=== PATIENT | female | born 1980 | race Caucasian/White ===

== ENCOUNTER → 2016-07-10 | Outpatient (CLI) | payer OTHER ==
[~2016-07-10] MED LIST: PRENTAB26 PO
[2016-07-10 14:30] LABS: MANUAL MICROSCOPIC REQUIRED? NO; REVIEW REQ? NO; URINE APPEARANCE CLEAR (CLEAR); URINE BILIRUBIN NEG (NEG); URINE COLOR YELLOW; URINE NITRITE NEG (NEG); URINE PH 5.5 (4.5-7.5); URINE SPECIFIC GRAVITY 1.019 (1.000-1.030); UROBILINOGEN NEG (NEG)
== END | disposition home or self-care (01) ==
LOC: C.LABSPEC 13:27
PROVIDERS: ATTEND Obstetrics & Gynecology
DX: Z34.01 Encounter for supervision of normal first pregnancy, first trimester (principal)

== ENCOUNTER → 2016-07-15 | Outpatient (CLI) | payer OTHER ==
[2016-07-15 10:59] LABS: BASO % 0.3 %; BASO ABS # 0.02 K/uL (0-0.2); COMPLETE YES; EOS % 0.3 %; HEMATOCRIT 38.3 % (37-47); LYMPH % 22.3 %; MEAN CELL VOLUME 90.8 fL (80-100); MEAN CORPUSCULAR HEMOGLOBIN 31.8 pg (25-34); MEAN PLATELET VOLUME 10.5 fL (7.4-10.4); MONO % 3.6 %; NEUT % 73.5 %; PLATELET COUNT 173 K/uL (130-400); RED BLOOD COUNT 4.22 M/uL (4.2-5.4); WHITE BLOOD COUNT 7.17 K/uL (4.8-10.8)
== END | disposition home or self-care (01) ==
LOC: C.LAB1850 09:07
PROVIDERS: ATTEND Obstetrics & Gynecology
DX: Z34.01 Encounter for supervision of normal first pregnancy, first trimester (principal)

== ENCOUNTER → 2016-07-15 | Outpatient (CLI) | payer OTHER ==
[2016-07-17 01:54] LABS: CHLAMYDIA TRACH RNA*** NOT DETECTED (NOT DETECTED); GC (NEIS GONORRHOEAE)RNA** NOT DETECTED (NOT DETECTED)
== END | disposition home or self-care (01) ==
LOC: C.LABSPEC 10:55
PROVIDERS: ATTEND Obstetrics & Gynecology
DX: Z34.01 Encounter for supervision of normal first pregnancy, first trimester (principal)

== ENCOUNTER → 2016-09-09 | Outpatient (CLI) | payer OTHER ==
[2016-09-09 12:02] LABS: GTGD 50 Grams
== END | disposition home or self-care (01) ==
LOC: C.LAB1850 08:47
PROVIDERS: ATTEND Obstetrics & Gynecology
DX: Z34.02 Encounter for supervision of normal first pregnancy, second trimester (principal)

== ENCOUNTER → 2016-12-02 | Outpatient (CLI) | payer OTHER ==
[2016-12-02 10:11] LABS: HEMATOCRIT 35.2 % (37-47)
[2016-12-02 10:37] LABS: GTGD 50 Grams
[2016-12-02 12:06] LABS: URINE APPEARANCE CLOUDY (CLEAR); URINE BILIRUBIN NEG (NEG); URINE COLOR YELLOW; URINE EPITHELIAL CELL AUTO >30 /lpf (0-5); URINE NITRITE NEG (NEG); URINE PH 6.5 (4.5-7.5); URINE SPECIFIC GRAVITY 1.016 (1.000-1.030); UROBILINOGEN NEG (NEG)
[2016-12-02 12:08] LABS: MANUAL MICROSCOPIC REQUIRED? NO; REVIEW REQ? NO
== END | disposition home or self-care (01) ==
LOC: C.LAB1850 08:49
PROVIDERS: ATTEND Obstetrics & Gynecology
DX: O09.513 Supervision of elderly primigravida, third trimester (principal); Z3A.00 Weeks of gestation of pregnancy not specified

== ENCOUNTER → 2017-01-30 | Outpatient (CLI) | payer OTHER | END | disposition home or self-care (01) | LOC: C.LABSPEC 10:53 | PROVIDERS: ATTEND Obstetrics & Gynecology | DX: O09.512 Supervision of elderly primigravida, second trimester (principal); Z3A.00 Weeks of gestation of pregnancy not specified ==

== ENCOUNTER 2017-02-23 10:20 | Outpatient (CLI) | payer OTHER ==
[~2017-02-23] VITALS: Ht 152.4 cm; Wt 70.8 kg
[2017-02-23] MEDS ORDERED: PRENTAB26 PO (10:50)
[2017-02-23 10:51] VITALS: Ht 152.4 cm; Wt 70.8 kg
--- NOTE | 2017-02-23 14:22 | DIAGNOSTIC IMAGING REPORT ---
BIO PROF W/O NST-SINGLE CLINICAL HISTORY: 37 years-old Female presenting with post-dates. TECHNIQUE: Real-time grayscale and M-mode Doppler ultrasound imaging of the pelvis was performed using a transabdominal probe. COMPARISON: None. FINDINGS: Uterus: Single live intrauterine third trimester . Femur length 7.5 cm corresponding to an estimated gestational age 38 weeks 2 days. Normal flexion and movement observed. heart rate 145-156 beats per minute. A three-vessel cord is observed. No spontaneous breathing observed. Cephalic presentation. Normal amniotic fluid volume. Amniotic fluid index 7.8. Posterior fundal placental implantation. Placental calcifications noted. Right adnexa: Not evaluated. Left adnexa: Not evaluated. Other: No free fluid. IMPRESSION: 1. biophysical profile score 6/8 by ultrasound with absent breathing. 2. Placental calcification suggest aging placenta. Electronically signed by: Jontahan Willams M.D. 02/23/2017 2:20 PM Dictated Date/Time: 02/23/2017 2:16 PM
== END 2017-02-23 14:57 | disposition home or self-care (01) ==
LOC: C.OPB 10:20 → C.LD 10:20 → C.OPB 14:57
PROVIDERS: ATTEND Obstetrics & Gynecology
DX: O26.893 Other specified pregnancy related conditions, third trimester (principal); Z3A.40 40 weeks gestation of pregnancy

== ENCOUNTER 2017-02-24 10:18 | Inpatient (IN) | payer OTHER ==
[~2017-02-24] VITALS: Ht 152.4 cm; Wt 71.2 kg
[2017-02-24] MEDS ORDERED: LACTATED RINGER'S 1000ML 1,000 ML IV PRN (10:49)
[2017-02-24] MEDS ORDERED: LACTATED RINGER'S 1000ML 500 ML IV PRN ×2 (10:49→17:51)
[2017-02-24] MEDS ORDERED: OXYTOCIN 30 UNITS/500ML NSS IV PRN (11:00)
[2017-02-24] MEDS: LACTATED RINGER'S 1000ML 1,000 ML IV SCH ×4 (11:03→23:02)
[2017-02-24 11:29] LABS: HEMATOCRIT 38.3 % (37-47); MEAN CELL VOLUME 92.3 fL (80-100); MEAN CORPUSCULAR HEMOGLOBIN 32.3 pg (25-34); MEAN PLATELET VOLUME 10.9 fL (7.4-10.4); PLATELET COUNT 127 K/uL (130-400); RED BLOOD COUNT 4.15 M/uL (4.2-5.4); WHITE BLOOD COUNT 10.11 K/uL (4.8-10.8)
[2017-02-24 11:53] VITALS: Ht 152.4 cm; Wt 71.2 kg
[2017-02-24] MEDS ORDERED: BUPIVACAINE 0.25% 30 ML VIAL ONE ×3 (16:44→21:33)
[2017-02-24] MEDS ORDERED: EpHEDrine SULFATE INJ 50 MG/ML AMP ONE (16:44)
[2017-02-24] MEDS ORDERED: FENTANYL CITRATE INJ 50 MCG/1 ML 2 ML VIAL ONE ×2 (16:45→20:54)
[2017-02-24] MEDS ORDERED: FENTANYL 2MCG/ML ROPIV 1.25MG/ML 100ML BAG EPI ONE (16:45)
[2017-02-24] MEDS ORDERED: NALOXONE HCL INJ 1 MG in SODIUM CHLORIDE 0.9% 1000ML 1,000 ML IV PRN (17:51)
[2017-02-24] MEDS ORDERED: EpHEDrine SULFATE INJ 50 MG/ML AMP IV PRN (18:00)
[2017-02-24] MEDS ORDERED: ONDANSETRON INJ 2 MG/ML 2 ML VIAL IV PRN (18:00)
[2017-02-24] MEDS ORDERED: NALBUPHINE HCL INJ 10 MG/ML AMP IV PRN (18:00)
[2017-02-24] MEDS ORDERED: NALOXONE HCL INJ 0.4 MG/1 ML VIAL/CARP IV PRN (18:00)
[2017-02-24] MEDS ORDERED: DiphenhydrAMINE HCL 50 MG/ML VIAL IV PRN (18:00)
[2017-02-24] MEDS: FENTANYL 2MCG/ML ROPIV 1.25MG/ML 100ML BAG EPI PRN ×2 (19:10→22:03)
[2017-02-25] MEDS: FENTANYL 2MCG/ML ROPIV 1.25MG/ML 100ML BAG EPI PRN (01:01)
[2017-02-25] MEDS ORDERED: SUPERCREAM 0.870 % 15GM JAR EXT PRN (04:00)
[2017-02-25] MEDS ORDERED: OXYTOCIN 30 UNITS/500ML NSS IV PRN (04:00)
[2017-02-25] MEDS ORDERED: ACETAMINOPHEN 325 MG TAB PO PRN (04:00)
[2017-02-25] MEDS ORDERED: OXYCODONE/ACETAMINOPHEN 5-325 TAB PO PRN (04:00)
[2017-02-25] MEDS ORDERED: DIPHTHERIA/TETANUS/PERTUSSIS 0.5 ML SYR/VIAL IM. ONE (04:00)
[2017-02-25] MEDS ORDERED: HYDROCORTISONE ACETATE 25 MG SUPP PR PRN (04:00)
[2017-02-25] MEDS ORDERED: BENZOCAINE 20% AER SPR 82.5 GM CAN EXT PRN (04:00)
[2017-02-25] MEDS ORDERED: LANOLIN OINT EXT PRN ×2 (04:00)
[2017-02-25 06:35] VITALS: BP 116/78; PULSE 97; TEMP 37.2
--- NOTE | 2017-02-25 07:27 | DELIVERY SUMMARY ---
DATE OF OPERATION: 02/25/2017 PREOPERATIVE DIAGNOSIS: Intrauterine at 40 and 4/7 weeks. POSTOPERATIVE DIAGNOSIS: Same. PROCEDURE: 1. Wong bulb for cervical ripening. 2. Pitocin augmentation. 3. Normal spontaneous vaginal delivery. 4. Vaginal laceration with repair. SURGEON: Dr. Wong. ANESTHESIA: Epidural. ESTIMATED BLOOD LOSS: 350 cc. DETAILS OF PROCEDURE: The patient presented to labor and delivery after having had two days of a fairly flat non-stress test. The patient had had a 6/8 BPP the day before with 2 taken off for breathing and develop a reactive NST while under observation. The patient presented to the office today where she had again a flat NST. When she presented to labor and delivery it was reactive, but given her gestational age we decided to proceed with induction. The patient underwent Wong bulb placement for cervical ripening and concomitant Pitocin augmentation. She progressed and eventually went to the bathroom and the Wong bulb fell out. She got her epidural anesthetic. She was checked and found to be 6 cm. It was difficult to tell if membranes were palpable. She progressed and very slowly after that with Pitocin augmentation to complete complete +2 station. She pushed effectively for approximately and hour and a half. Amniotomy was performed at +2 station for a very thin membrane and essentially no fluid. She then delivered a viable male infant in TRACIE presentation. A loose nuchal cord x1 was reduced. The nose and mouth were bulb suctioned on the perineum and the rest of the was then delivered without difficulty. The infant was placed on the maternal abdomen for drying and attention and the cord was clamped and cut. Cord blood and segment were obtained. Placenta was delivered spontaneously intact with a 3-vessel cord. Cervix, sulci, rectum and perineum were examined and found to be intact. A small vaginal laceration was repaired with 3-0 Vicryl. Hemostasis obtained with dilute Pitocin and fundal massage. Apgars were 8 and 9. Weight pending. Mother and baby doing well at the end of the delivery. I attest to the content of the Intraoperative Record and any orders documented therein. Any exception s are noted below.
[2017-02-25 08:00] VITALS: BP 109/75; PULSE 98; TEMP 36.9
[2017-02-25] MEDS: DOCUSATE SODIUM 100 MG CAP PO SCH ×2 (08:08→19:24)
[2017-02-25] MEDS: PRENATAL VITAMIN TAB PO SCH (08:08)
--- NOTE | 2017-02-25 08:52 | Anesthesia Procedure Note ---
Anesthesia Epidural Removal Nt Date & Time Feb 25, 2017 at 08:52 Vital Signs Pain Intensity: 0.0 Vital Signs Past 12 Hours Date Time Temp Pulse Resp B/P (MAP) Pulse Ox O2 Delivery O2 Flow Rate FiO2 02/25/17 08:00 36.9 98 18 109/75 (86) Room Air 02/25/17 06:35 37.2 97 18 116/78 (91) Room Air Notes Mental Status: alert / awake / arousable, participated in evaluation Nausea / Vomiting: adequately controlled Pain: adequately controlled Airway Patency, RR, SpO2: stable & adequate BP & HR: stable & adequate Hydration State: stable & adequate Neuraxial Anesthesia: was administered, sensory block is resolved Anesthetic Complications: no major complications apparent, pt satisfied with anesthetic care Epidural: removed without complications, with tip intact
[2017-02-25 11:26] VITALS: BP 118/84; PULSE 99; TEMP 36.6
[2017-02-25] MEDS: IBUPROFEN 600 MG TAB PO PRN ×2 (13:07→19:25)
[2017-02-25 15:30] VITALS: BP 127/83; PULSE 90; TEMP 36.5; O2SAT 97
[2017-02-25 19:25] VITALS: BP_SYST 127; BP_SYST 143; BP_DIAS 86; BP_DIAS 94; PULSE 99; TEMP 36.3; O2SAT 99
[2017-02-26 00:01] VITALS: BP 112/74; PULSE 78; TEMP 36.4; O2SAT 98
[2017-02-26 03:45] VITALS: BP 98/67; PULSE 90; TEMP 36.5; O2SAT 97
[2017-02-26] MEDS: IBUPROFEN 600 MG TAB PO PRN (06:24)
--- NOTE | 2017-02-26 06:33 | Progress Note ---
Subjective Feb 26, 2017. Subjective conversation w/ patient, physical exam, chart review, lab review Ambulation: limited ambulation (to bathroom thus far) Voiding: no voiding problems Passing Gas: Yes Diet Tolerance: Regular Diet Lochia: Small Feeding Type: Breast Feeding (and bottle) Pain: Denies pain or cramping Comment: Found pt resting comfortably, smiling, denies any pain or acute concerns. Review of Systems Constitutional: No fever, No chills Respiratory: No cough, No shortness of breath Cardiac: No chest pain, No edema Abdomen: No nausea, No vomiting, No diarrhea Female : No dysuria Objective Vital Signs Date Time Temp Pulse Resp B/P (MAP) Pulse Ox O2 Delivery O2 Flow Rate FiO2 02/26/17 03:45 36.5 90 18 98/67 (77) 97 Room Air 02/26/17 00:01 36.4 78 18 112/74 (87) 98 Room Air 02/26/17 00:01 Room Air 02/25/17 19:25 36.3 99 18 143/94 (110) 99 Room Air 127/86 (100) 02/25/17 15:30 36.5 90 18 127/83 (98) 97 Room Air 02/25/17 15:30 Room Air 02/25/17 11:26 36.6 99 18 118/84 (95) Room Air 02/25/17 08:10 Room Air 02/25/17 08:00 36.9 98 18 109/75 (86) Room Air 02/25/17 06:35 37.2 97 18 116/78 (91) Room Air Physical Exam General Appearance: WELL-APPEARING, WD/WN, NO APPARENT DISTRESS Respiratory/Chest: lungs clear, normal breath sounds, no respiratory distress Cardiovascular: regular rate, rhythm, no edema, no murmur Abdomen: normal bowel sounds, non tender, soft Fundus: Firm, Non-Tender, Relation to Umbilicus (at umbilicus) Extremities: non-tender, no pedal edema, no calf tenderness Laboratory Results Last 24 Hours Test 02/26/17 06:24 Assessment and Plan Post- Day#: 1 Continue Routine Care: 37F s/p vaginal delivery, now PPD #1. - Blood type B positive. GBS negative. Rubella immune. - Vital signs reviewed and stable. - Pain controlled with motrin. - No leg swelling or tenderness on calf palpation. Encourage ambulation. - Encourage breast feeding. - Hemoglobin pre-delivery 13.4, post-delivery pending this am. Bleeding has improved. Continue to monitor clinically. - Continue routine post-vaginal delivery care. - Pt agreed with above plan, all current questions answered. Vic Burrows MD, PGY1 Mechanic Marine Engine Physician Supervision Note: I interviewed and examined the patient. Discussed with Dr. Burrows and agree with findings and plan as documented in the note. Any exceptions or clarifications are listed here: Patient desires d/c. Instructions given, f/u in 6 weeks for PP check Documented By: Jm Hsu Resident Tracking Resident Involvement: Resident Care Provided Care Provided: OB Delivery (OB rounds)
--- NOTE | 2017-02-26 06:55 | Discharge Instructions ---
Discharge Instructions Date of Service Feb 26, 2017. Admission Reason for Admission: Induction Discharge Discharge Diagnosis / Problem: Recovery from vaginal delivery Discharge Goals Goal(s): Routine recovery after delivery Medications Continue Dispensed Medications: supercream, dermaplast, tucks, lansinoh Activity Recommendations Activity Limitations: per Instructions/Follow-up section . Instructions / Follow-Up Instructions / Follow-Up ACTIVITY RECOMMENDATIONS: * Gradual return to full activity over the next 2-3 weeks. * No lifting - nothing heavier than baby over the next 2-3 weeks. * Do not engage in vigorous exercise, sexual activity or sports until cleared by your physician. * Do not drive or operate any motorized equipment until cleared by your physician. * You may shower/bathe daily. MEDICATIONS: For discomfort or pain, you may use Acetaminophen (Tylenol), Ibuprofen (Advil), or Naproxen (Aleve) following the package directions. For constipation you may use Colace following the package directions. BREAST CARE: If you are not breast feeding: * Wear a supportive bra 24 hours a day for one to two weeks. * Avoid stimulating your breasts and nipples as much as possible during the first few weeks after delivery. * When taking a shower, have the warm water hit your back, not breasts. * When your breasts feel full, apply ice packs. Usually three to four times a day helps ease the discomfort. * Take a mild pain medication (Tylenol / Motrin) when you are uncomfortable. If breast feeding: * Use breast milk to lubricate nipples. Lansinoh cream may be used for sore nipples. You do not need to remove cream prior to breast feeding. If using a different brand of cream, check the label for directions regarding removal of cream prior to nursing. * Wear a supportive bra. * If having problems with breasts or breast feeding, call a call center consultant or your health care provider. EPISIOTOMY CARE: After delivery, if you have an episiotomy (stitches), the following steps will ease discomfort and aid healing. * For the first 24 hours after delivery, place ice packs next to your episiotomy to help reduce swelling. * After the first 24 hour-period, sitz baths, either portable or in the tub, are suggested. A shower with a shower arm sprayed over the episiotomy may be comforting. * Briseyda care should be done after each voiding and bowel movement. Squirt warm water from a plastic bottle over the perineum (region of the body between the anus and urinary opening) and pat dry. * Use Dermoplast to ease discomfort. Shake container. Bulan directly over the episiotomy. Place a Tucks on a clean sanitary pad next to your episiotomy. SPECIAL CARE INSTRUCTIONS: When you are discharged from the hospital, it is important for you to follow the instructions listed below: * During the first week at home, you should be able to care for yourself and your baby. In addition, the usual light household activities are encouraged. * Limit your activities to the way you feel. Do not try to clean the house or move furniture. Be sensible. * If you actively engage in sports and have done so up until the time of your delivery, you may resume these activities as soon as you feel able. This may take up to one month or even longer. Use good judgment. * Continue to take your vitamins for at least six weeks after the of your baby. * Your diet need not be limited unless you were on a special diet before your delivery. Breast-feeding mothers need around 2500 calories per day and at least 64-80 ounces of fluid per day (8 to 10 glasses). * You should eat foods from the four major food groups. Crash diets or fad diets are to be avoided. Eating lean meats, fresh fruits and vegetables, low-fat dairy products, high fiber foods and a regular exercise program, will help you get back to your pre- weight without putting your health at risk. * Constipation is sometimes a problem after delivery. Take a mild laxative as needed. If breast feeding, Milk of Magnesia is acceptable to use. You may use a suppository or Fleets enema if no episiotomy. * A daily shower or tub bath is suggested. Be sure to thoroughly and gently dry the perineum. * A bloody vaginal discharge will usually continue until around four weeks post . A small amount of bleeding may continue for as long as six weeks. Vaginal discharge changes from the bright red bleeding after delivery to pink then brownish and finally yellowish-pink before becoming white and disappearing. * Bleeding may increase with activity. Your first period may come in 4-8 weeks. If you are breast feeding, your period may be delayed even longer. * [place] (sex) can begin whenever both you and your partner feel comfortable and do not have any form of genital infection. It is recommended that you wait at least six weeks for internal and external healing to occur. If you have questions, please talk to your health care practitioner. A condom should be used to prevent infection and . * Foreplay, gentle intercourse and lubrication is very important the first several times to prevent pain. A water-based lubricant such as K-Y jelly or Astroglide may be used. * If you have RH negative blood and your baby is RH positive, you will receive RHOGAM by injection prior to discharge. The nurse will give you a card to keep with you that has the date and place that you received RHOGAM after delivery. * During your care, you had a Rubella screen done to check for the presence of rubella antibodies in your blood. If your test was negative, you will receive a Rubella vaccine prior to discharge. This vaccine may cause a fever, soreness at the injection site and flu-like symptoms. If these symptoms persist, notify your health care practitioner. is not advised for one month after a Rubella vaccine. * Verbalizes understanding of car seat law as reviewed with patient nursing. * Car Seat hand-out given and reviewed with patient by nursing. * Shaken baby information reviewed with patient by nursing. Call you doctor if: * Heavy bleeding (saturating several pads an hour) or passing clots the size of your fist. * A fever >101 degrees F (38.3 degrees C) on two occasions four hours apart and /or chills. * Unusual pain in the pelvic or vaginal areas. * "Baby Blues" lasting longer than two weeks. If you have any questions or concerns, call your health care practitioner at . FOLLOW UP VISIT: * Please call the office at to schedule a 6 week examination. It is important you keep this appointment. It is important for you to make arrangements for either yearly or twice yearly check-ups thereafter. Current Hospital Diet Patient's current hospital diet: Regular OB Diet Discharge Diet Recommended Diet: Regular OB Diet Pending Studies Studies pending at discharge: no Medical Emergencies . Who to Call and When: Medical Emergencies: If at any time you feel your situation is an emergency, please call 911 immediately. . Non-Emergent Contact Non-Emergency issues call your: Gas Line Servicer . . "Provider Documentation" section prepared by Vic Burrows. . VTE Core Measure Inpt VTE Proph given/why not?: Treatment not indicated
[2017-02-26 07:43] VITALS: BP 120/98; PULSE 86; TEMP 36.3; O2SAT 100
[2017-02-26] MEDS: DOCUSATE SODIUM 100 MG CAP PO SCH (08:45)
[2017-02-26] MEDS: PRENATAL VITAMIN TAB PO SCH (08:45)
[2017-02-26 09:28] VITALS: BP_DIAS 98; PULSE 86; TEMP 36.3
[2017-02-26 15:25] VITALS: BP 148/79; PULSE 100; TEMP 36.5; O2SAT 99
[2017-02-26 16:30] VITALS: BP_DIAS 79; PULSE 100; TEMP 36.5
== END 2017-02-26 16:30 | disposition home or self-care (01) | DRG 775 ==
LOC: C.LD 10:18 → C.OPB 10:18 → C.LD 10:51 → C.OBG 02-25 06:02
PROVIDERS: ADMIT Obstetrics & Gynecology; ATTEND Obstetrics & Gynecology
PROC: 3E033VJ Introduction of Other Hormone into Peripheral Vein, Percutaneous Approach (ICD-10-PCS; principal; 2017-02-24)
PROC: 10H07YZ Insertion of Other Device into Products of Conception, Via Natural or Artificial Opening (ICD-10-PCS; principal; 2017-02-24)
PROC: 0UQGXZZ Repair Vagina, External Approach (ICD-10-PCS; principal; 2017-02-24)
PROC: 10E0XZZ Delivery of Products of Conception, External Approach (ICD-10-PCS; principal; 2017-02-24)
DX: O48.0 Post-term pregnancy (principal); O71.4 Obstetric high vaginal laceration alone; O28.8 Other abnormal findings on antenatal screening of mother; O69.81X0 Labor and delivery complicated by cord around neck, without compression, not applicable or unspecified; O09.513 Supervision of elderly primigravida, third trimester; Z3A.40 40 weeks gestation of pregnancy; Z37.0 Single live birth

== ENCOUNTER 2021-07-30 17:34 | Inpatient (IN) ==
[2021-07-30] MEDS ORDERED: OXYTOCIN 30 UNITS/500 ML BAG IV PRN ×2 (18:12→23:46)
[2021-07-30 18:30] LABS: Hemoglobin 13.9 g/dL (12.0-16.0); Mean Corpuscular Hgb Conc 35.6 g/dL (32-36); Mean Corpuscular Volume 95.4 fL (80-100); Mean Platelet Volume 11.2 fL (7.4-10.4); Platelet Count 150 K/uL (130-400); RDW Coefficient of Variation 13.5 % (11.5-14.5); RDW Standard Deviation 46.9 fL (36.4-46.3); Red Blood Count 4.09 M/uL (4.2-5.4); White Blood Count 14.84 K/uL (4.8-10.8)
[2021-07-30] MEDS ORDERED: BUPIVACAINE 0.25% 30 ML VIAL ONE (18:35)
[2021-07-30] MEDS ORDERED: SODIUM CHLORIDE 0.9% INJ 10 ML VIAL ONE (18:35)
[2021-07-30] MEDS ORDERED: ePHEDrine sulfate 50 MG/ML AMP ONE (18:35)
[2021-07-30] MEDS ORDERED: fentaNYL citrate 100 MCG/2 ML VIAL ONE (18:35)
[2021-07-30] MEDS ORDERED: ePHEDrine sulfate 50 MG/ML AMP IV PRN (18:36)
[2021-07-30] MEDS ORDERED: ONDANSETRON INJ 2 MG/ML 2 ML VIAL IV PRN (18:36)
[2021-07-30] MEDS ORDERED: fentaNYL 2MCG/ML ROPIVACAINE 1.25MG/ML 100 ML BAG EPI PRN (18:36)
[2021-07-30] MEDS ORDERED: NALOXONE HCL 1 MG in SODIUM CHLORIDE 0.9% 1000ML 1,000 ML IV PRN (18:36)
[2021-07-30] MEDS ORDERED: NALBUPHINE HCL INJ 10 MG/ML AMP IV PRN (18:36)
[2021-07-30] MEDS ORDERED: fentaNYL 2MCG/ML ROPIVACAINE 1.25MG/ML 100 ML BAG EPI ONE (18:36)
[2021-07-30] MEDS ORDERED: diphenhydrAMINE 50 MG/ML VIAL IV PRN (18:36)
[2021-07-30] MEDS ORDERED: NALOXONE HCL 0.4 MG/1 ML VIAL/CARP IV PRN (18:36)
--- NOTE | 2021-07-30 18:36 | Anesthesiology Consultation ---
Date of Service July 30, 2021 Assessment & Plan ASA ASA2 Proposed Anesthesia Anesthesia Type: Labor Epidural Risk / Benefits Reviewed With: PT / POA / Parent / Guardian, Accepts Plan and Informed Consent Obtained History Height/Weight Height: 5 ft Weight: 83.007 kg Allergies Allergy/AdvReac Type Severity Reaction Status Date / Time No Known Allergies Allergy Verified 07/26/21 13:40 Medications Home Medications Medication Instructions Recorded Confirmed Last Taken Multivit/Min/Iron/Fol Ac/Pren 1 tab PO DAILY #0 tab 02/23/17 07/30/21 1 Day Ago ( Vitamin) ~07/29/21 Active Medications Generic Name Dose Route Start Last Admin Trade Name Freq PRN Reason Stop Dose Admin Lactated Ringer's 1,000 mls @ 125 mls/hr 07/30/21 18:12 07/30/21 18:40 Lr IV 08/01/21 18:11 999 mls/hr .Q8H PRN Administration L&D Protocol Protocol Ropivacaine 100 ml 07/30/21 18:36 07/30/21 19:04 Fentanyl 2mcg/Ml Ropivacaine 1.25mg/Ml 100 Ml Bag EPI 07/31/21 18:35 100 ml PRN PRN Administration Pain R/T Labor Protocol Past Medical History Medical History History of chicken pox Exercise / Class Metabolic Activity II 4-5 Yardwork/Stairs/Walk up hill Past Family History Family History Denies family history of Ovarian cancer Breast cancer Colorectal cancer Past Surgical History Surgical History S/P wisdom tooth extraction Past Anesthesia History No Hx of Anesthesia Complications and No Family Hx of Anesthesia Complications History of PONV No Hx of PONV and No Hx of Motion Sickness Social History Smoking Status: Never smoker Hx Alcohol Use: No Hx Substance Use: No Review of Systems denies fever/cough/ colds/ chest pain/ SOB/ SELWYN denies SELWYN Physical Exam Vital Signs Last Vital Signs Temp 36.8 C 07/30/21 17:43 Pulse 117 H 07/30/21 19:12 Resp 22 07/30/21 17:43 BP 129/81 07/30/21 19:11 Pulse Ox 99 07/30/21 19:12 ENMT Mouth: no TMJ abnormality and no dentition abnormality Thyromental Distance: > or= 3.5 Finger Breadths Mallampati Class: II Neck neck extension not limited Respiratory normal respiratory effort; no respiratory distress Auscultation: lungs clear to auscultation bilaterally Cardiovascular Rate/Rhythm: regular rate and regular rhythm Neurologic moves all extremities Psychiatric Orientation: alert and oriented x 3 Testing Laboratory Results 07/30/21 18:20
[2021-07-30] MEDS: LACTATED RINGER'S 1,000 ML IV PRN ×2 (18:40→19:42)
--- NOTE | 2021-07-30 19:18 | History & Physical Report ---
Date of Service July 30, 2021 Assessment & Plan (1) Elderly multigravida: Plan: Gunjan is a 41-year-old at 40 weeks 1 day gestational age presents in labor. 1. Fetus: Cat 1 2. Labor: Active 3 GBS: Negative 4. Vitals: Normal (2) Normal labor: History of Present Illness Primary Care Provider: Ava Patton DO Gunjan is a 41-year-old 0014 weeks 1 day gestational age presents with contractions worsening in frequency and intensity over time. Patient denies any leakage of fluid or vaginal bleeding. Patient's has been complicated by advanced maternal age was otherwise been uncomplicated. Patient has a history of a prior uncomplicated vaginal delivery. LABS OB Labs: Blood Type B Positive 12/18/20 Antibody Screen NEGATIVE 12/18/20 Hemoglobin 11.6 g/dL (12.0-16.0) L 05/07/21 Hematocrit 34.8 % (37-47) L 05/07/21 Mean Corpuscular Volume 92.5 fL (80-100) 12/18/20 Platelet Count 226 K/uL (130-400) 12/18/20 Rubella IgG Antibody Immune (Immune) 12/18/20 Rapid Plasma Reagin Nonreactive (Nonreactive) 12/18/20 Hepatitis B Surface Antigen Neg (Neg) 12/18/20 HIV (1&2) Ab and P24 Ag, 4th Gener Neg (Neg) 12/18/20 Glucose 1 Hour 50 gm Load 130 mg/dl (70-130) 05/07/21 OB Optional Labs: Chlamydia trachomatis RNA NOT DETECTED (NOT DETECTED) 12/18/20 Neisseria gonorrhoeae RNA NOT DETECTED (NOT DETECTED) 12/18/20 Allergies Allergy/AdvReac Type Severity Reaction Status Date / Time No Known Allergies Allergy Verified 07/26/21 13:40 Home Medications Medication Instructions Recorded Confirmed Type Multivit/Min/Iron/Fol Ac/Pren 1 tab PO DAILY #0 tab 02/23/17 07/30/21 History ( Vitamin) Patient History Medical History (Updated 07/30/21 @ 19:20 by Bennie Steward MD) History of chicken pox Surgical History S/P wisdom tooth extraction Family History Denies family history of Ovarian cancer Breast cancer Colorectal cancer Social History Smoking Status: Never smoker Hx Alcohol Use: No Hx Substance Use: No Preferred Language: Marshallese Communication Ability: Effective [employer]ed [employer] Pcb Draftsman Required: No Beliefs That Will Affect Care: None marital status: Single marital status details: richard Gill (34) [phone] Current Living Situation: Spouse Current Living Situation Comment: lives with fob, son, dog, chickens, cat-fob changing litter current occupational status: employed current occupation: [employer] Feels Safe at Home: Yes Safety Concerns: Feels Safe At This Time Assistive Devices: None Physical Exam Genitourinary: normal external appearance Manual OB Exam: + cervical dilation 5 cm, + cervical effacement 100% and + station -1 OB Exam Monitor Tracing: + external FHT monitor used, + external uterine monitor used, + category I and + normal FHT variability; no early decelerations present, no late decelerations present and no variable decelerations Cervical exam per nurse. Results & Data ([facility]) Vital Signs (Past 12 Hours) Vital Signs Temp Pulse Resp BP Pulse Ox 07/30/21 19:13 121 H 143/63 H 07/30/21 19:12 117 H 99 07/30/21 19:11 118 H 129/81 07/30/21 19:09 122 H 124/85 07/30/21 19:07 111 H 130/78 07/30/21 19:06 120 H 99 07/30/21 19:05 103 H 131/80 07/30/21 19:03 103 H 129/85 07/30/21 19:01 108 H 138/86 99 07/30/21 18:56 112 H 99 07/30/21 18:51 110 H 99 07/30/21 18:46 105 H 100 07/30/21 18:41 110 H 98 07/30/21 17:43 36.8 C 22 07/30/21 17:42 85 142/88 H Code Status & VTE Plan VTE Prophylaxis Plan VTE Prophylaxis will be ordered: No Coding Level of Care Code None Diagnoses Elderly multigravida O09.529 Normal labor O80; Z37.9
[2021-07-30] MEDS ORDERED: ACETAMINOPHEN 325 MG TAB PO PRN (23:46)
[2021-07-30] MEDS ORDERED: HYDROCORTISONE ACETATE 25 MG SUPP PR PRN (23:46)
[2021-07-30] MEDS ORDERED: BENZOCAINE 20% AER SPR 82.5 GM CAN EXT PRN (23:46)
[2021-07-30] MEDS ORDERED: bisacodyL 10 MG SUPP PR PRN (23:46)
[2021-07-30] MEDS ORDERED: DIPHTHERIA/TETANUS/PERTUSSIS 0.5 ML SYR/VIAL IM ONE (23:46)
--- NOTE | 2021-07-31 00:06 | Anesthesia Procedure Note ---
Date of Service July 31, 2021 Anesthesia Post Epidural Note Vital Signs Vital Signs: Temp Pulse Resp BP Pulse Ox 36.9 C 102 H 18 156/81 H 91 07/30/21 23:40 07/30/21 23:55 07/30/21 23:55 07/30/21 23:55 07/30/21 23:22 Notes Mental Status: alert / awake / arousable and participated in evaluation Patient Amnestic to Procedure: Yes Nausea / Vomiting: adequately controlled Pain: adequately controlled Airway Patency, RR, SpO2: stable & adequate BP & HR: stable & adequate Hydration State: stable & adequate Anesthetic Complications: no major complications apparent and Pt Satisfied with anesthetic care
--- NOTE | 2021-07-31 00:06 | Anesthesiology Consultation ---
Date of Service July 31, 2021 Assessment & Plan ASA ASA2 Proposed Anesthesia Anesthesia Type: General and Labor Epidural Risk / Benefits Reviewed With: PT / POA / Parent / Guardian, Accepts Plan and Informed Consent Obtained History Height/Weight Height: 5 ft Weight: 83.007 kg Allergies Allergy/AdvReac Type Severity Reaction Status Date / Time No Known Allergies Allergy Verified 07/26/21 13:40 Medications Home Medications Medication Instructions Recorded Confirmed Last Taken vits no.124-ferrous fum 1 tab PO DAILY 07/30/21 07/30/21 07/29/21 27 mg iron-folic acid 800 mcg tablet ( Vitamin) Active Medications Generic Name Dose Route Start Last Admin Trade Name Freq PRN Reason Stop Dose Admin Oxytocin 30 units in 500 mls @ 333.333 mls/hr 07/30/21 18:12 07/30/21 23:26 Pitocin IV 08/29/21 18:11 59.94 units/hr .Q1H30M PRN 999 mls/hr Bleeding Control Administration Protocol 20 UNITS/HR Lactated Ringer's 1,000 mls @ 125 mls/hr 07/30/21 18:12 07/30/21 19:42 Lr IV 08/01/21 18:11 125 mls/hr .Q8H PRN Administration L&D Protocol Protocol Ropivacaine 100 ml 07/30/21 18:36 07/30/21 19:04 Fentanyl 2mcg/Ml Ropivacaine 1.25mg/Ml 100 Ml Bag EPI 07/31/21 18:35 100 ml PRN PRN Administration Pain R/T Labor Protocol Past Medical History Medical History (Updated 07/30/21 @ 19:20 by Bennie Steward MD) History of chicken pox Exercise / Class Metabolic Activity II 4-5 Yardwork/Stairs/Walk up hill Past Family History Family History Denies family history of Ovarian cancer Breast cancer Colorectal cancer Past Surgical History Surgical History S/P wisdom tooth extraction Past Anesthesia History No Hx of Anesthesia Complications and No Family Hx of Anesthesia Complications History of PONV No Hx of PONV and No Hx of Motion Sickness Social History Smoking Status: Never smoker Hx Alcohol Use: No Hx Substance Use: No Review of Systems denies fever/cough/ colds/ chest pain/ SOB/ SELWYN denies SELWYN Physical Exam Vital Signs Last Vital Signs Temp 36.9 C 07/30/21 23:40 Pulse 102 H 07/30/21 23:55 Resp 18 07/30/21 23:55 BP 156/81 H 07/30/21 23:55 Pulse Ox 91 07/30/21 23:22 ENMT Mouth: no TMJ abnormality and no dentition abnormality Thyromental Distance: > or= 3.5 Finger Breadths Mallampati Class: II Neck neck extension not limited Respiratory normal respiratory effort; no respiratory distress Auscultation: lungs clear to auscultation bilaterally Cardiovascular Rate/Rhythm: regular rate and regular rhythm Neurologic moves all extremities Psychiatric Orientation: alert and oriented x 3 Testing Laboratory Results 07/30/21 18:20 Blood Type B Positive 07/30/21 18:20 Antibody Screen NEGATIVE 07/30/21 18:20
[2021-07-31] MEDS: IBUPROFEN 600 MG TAB PO PRN ×3 (00:45→16:04)
--- NOTE | 2021-07-31 04:21 | Delivery Summary ---
DATE OF SERVICE: 07/30/2021 PROCEDURE: Normal spontaneous vaginal delivery. SURGEON: Bennie Steward MD. PREOPERATIVE DIAGNOSES: 1. Single intrauterine at 40 weeks 1 day gestational age. 2. Advanced maternal age. 3. Spontaneous labor. POSTOPERATIVE DIAGNOSES: 1. Single intrauterine at 40 weeks 1 day gestational age. 2. Advanced maternal age. 3. Spontaneous labor. 4. Status post procedure. ESTIMATED BLOOD LOSS: 100 mL DRAINS: None. FLUIDS: Continuous lactated Ringer. URINE OUTPUT: None. COMPLICATIONS: None. FINDINGS: Viable male infant with weight and Apgars pending. INDICATIONS: The patient presented in active labor at initially 5 cm dilated, 100% effaced, negative 1 station. She received epidural for anesthesia, underwent artificial rupture of membranes for meco nium stained fluid. She progressed in labor to complete-complete, +1 station with urge to push and p ushed over approximately a 10-minute period to achieve delivery. DESCRIPTION OF PROCEDURE: The patient progressed to 10 cm dilated, 1% effaced, positive 2 station, p ushed over intact perineum with epidural anesthesia, delivered a viable male , weight and s as noted above. Head of the delivered in CRISTIN position, restituted to right transverse. Af ter the anterior shoulder delivered, a hand presentation of the posterior arm was noted, which was th en delivered gently. After delivery of the posterior arm, the remaining body and shoulders quickly fo llowed. underwent resuscitation for approximately 30 seconds, after which the cord was doubl e clamped and cut. became vigorous soon after cutting the umbilical cord. The remai kaushik on maternal abdomen for a minute or so and then was taken over to the waiting nursery staff for f urther evaluation, although was still noted to be vigorous. Cord blood was then obtained. Attention was then turned to delivery of the placenta, which was delivered intact, 3-vessel cord, gentle cord traction. On inspection of the perineum, vagina, and cervix, there was noted to be no lacerations. Sponge and instrument counts were correct at the completion of the case with mother and were stable in the immediate post-delivery period. Job ID: [id number]
[2021-07-31 07:04] LABS: Hematocrit (blood only) 33.8 % (37-47); Hemoglobin 11.6 g/dL (12.0-16.0)
--- NOTE | 2021-07-31 07:45 | Obstetrical Progress Note ---
Date of Service <Contreras Chew MD - Last Filed: 07/31/21 07:45> July 31, 2021 Assessment & Plan <Contreras Chew MD - Last Filed: 07/31/21 07:45> (1) Vaginal delivery: 41 yo now PPD1 from at 40wk2d -Continue routine care -Vitals reviewed- HDS, afebrile -Blood type B+, GBS-, Rubella immune -Encourage ambulation, regular diet -Pain control with ibuprofen, acetaminophen PRN -Encourage -Hgb 11.6, asymptomatic -F/u in 6 weeks with OB <Bennie Steward MD - Last Filed: 08/01/21 17:20> (1) Vaginal delivery: Subjective <Contreras Chew MD - Last Filed: 07/31/21 07:45> Ambulation: ambulating normally Voiding: no voiding problems Passing Gas:: Yes Diet Tolerance:: regular diet Lochia:: Small Feeding Type:: breast feeding Current Pain Level(1-10): 0 Pt doing well overall, no acute complaints or distress. Pain well controlled with medication. Review of Systems Denies fever/chills. Denies dyspnea, cough. Denies chest pain. Denies breast pain or discharge. Denies dysuria. Denies headache. Denies back pain. Physical Exam <Contreras Chew MD - Last Filed: 07/31/21 07:45> Exam per Dr. Steward Results & Data ([facility]) <Contreras Chew MD - Last Filed: 07/31/21 07:45> Vital Signs (Past 12 Hours) Vital Signs Temp Pulse Pulse Resp BP BP Pulse Ox 07/31/21 04:45 36.7 C 90 16 116/77 07/31/21 02:15 36.5 C 98 H 18 129/84 07/31/21 01:48 101 H 128/71 07/31/21 01:40 18 07/31/21 01:10 18 07/31/21 01:07 106 H 131/70 07/31/21 00:52 106 H 134/71 07/31/21 00:40 100 H 18 141/69 H 07/31/21 00:37 110 H 150/95 H 07/31/21 00:25 18 07/31/21 00:10 18 07/31/21 00:07 116 H 154/85 H 07/30/21 23:55 102 H 18 156/81 H 07/30/21 23:53 184 H 182/131 H 07/30/21 23:40 36.9 C 18 07/30/21 23:23 130/91 07/30/21 23:22 143 H 91 07/30/21 23:20 137 H 77 L 07/30/21 23:17 142 H 99 07/30/21 23:12 130 H 75 L 07/30/21 23:08 144 H 132/71 07/30/21 23:07 142 H 78 L 07/30/21 23:02 106 H 99 07/30/21 23:00 18 07/30/21 22:57 116 H 99 07/30/21 22:53 118 H 137/86 07/30/21 22:52 118 H 99 07/30/21 22:47 123 H 100 07/30/21 22:42 110 H 99 07/30/21 22:39 117 H 134/70 07/30/21 22:37 116 H 100 07/30/21 22:32 124 H 100 07/30/21 22:30 18 07/30/21 22:29 131 H 80 L 07/30/21 22:27 127 H 99 07/30/21 22:24 110 H 126/76 07/30/21 22:22 132 H 99 07/30/21 22:17 102 H 99 07/30/21 22:12 99 H 100 07/30/21 22:07 104 H 113/66 100 07/30/21 22:02 100 H 99 07/30/21 22:00 18 07/30/21 21:57 102 H 100 07/30/21 21:53 103 H 125/69 07/30/21 21:52 98 H 100 07/30/21 21:47 114 H 100 07/30/21 21:42 99 H 99 07/30/21 21:39 121 H 125/66 07/30/21 21:37 140 H 100 07/30/21 21:32 107 H 98 07/30/21 21:30 36.8 C 18 07/30/21 21:27 109 H 98 07/30/21 21:23 100 H 103/58 L 07/30/21 21:22 108 H 103/57 L 100 07/30/21 21:17 111 H 100 07/30/21 21:12 107 H 99 07/30/21 21:07 101 H 106/63 100 07/30/21 21:02 108 H 99 07/30/21 21:00 18 07/30/21 20:57 110 H 100 07/30/21 20:53 104 H 105/60 07/30/21 20:52 96 H 100 07/30/21 20:47 94 H 100 07/30/21 20:42 94 H 100 07/30/21 20:37 109 H 126/72 100 07/30/21 20:32 110 H 100 07/30/21 20:30 18 07/30/21 20:27 127 H 99 07/30/21 20:24 93 H 119/69 07/30/21 20:22 85 98 07/30/21 20:20 121 H 86 L 07/30/21 20:17 108 H 100 07/30/21 20:12 103 H 100 07/30/21 20:07 106 H 100 07/30/21 20:05 110 H 89 L 07/30/21 20:02 107 H 97 07/30/21 20:00 18 07/30/21 19:57 121 H 98 07/30/21 19:52 122 H 98 07/30/21 19:47 99 H 98 <Bennie Steward MD - Last Filed: 08/01/21 17:20> Co-Signing Physician Notes Patient seen and evaluated and agree with the above findings and plan. Routine care Resident Activity Tracking <Contreras Chew MD - Last Filed: 07/31/21 07:45> Resident Involvement: Resident Care Provided Care Provided: OB Delivery
[2021-07-31] MEDS ORDERED: PRENATAL VITAMIN 1 TAB PO SCH (08:00)
[2021-07-31] MEDS ORDERED: FERROUS SULFATE 325 MG TAB PO SCH (08:00)
[2021-07-31] MEDS: DOCUSATE SODIUM 100 MG CAP PO SCH ×2 (08:59→21:15)
[2021-07-31] MEDS ORDERED: bisacodyL 5 MG TABEC PO SCH (20:00)
== END 2021-08-01 00:34 | disposition home or self-care (01) | DRG 807 ==
LOC: OPB 17:34 → 4S1 17:35 → 4S2 07-31 02:14